=== PATIENT | female | born 1995 ===

== ENCOUNTER 2025-05-10 10:00 | Emergency (ER) | payer MEDICAID, SELFPAY ==
--- NOTE | ~2025-05-10 | US_ITS ---
CLINICAL HISTORY: R sided adnexal tenderness, HCG +, R O ectopic Ultrasound OB first trimester Comparison: None available Findings: Single live intrauterine . CRL: 1.3 cm. EGA: 7 weeks and 4 days. ALFREDO: 11/22/25. Previously established gestational age: N/A. Normal yolk sac. FHR: 160 bpm. No subchorionic bleed. Normal uterus and ovaries. Left corpus luteum. No free fluid. Impression: Single live intrauterine estimated at 7 weeks and 4 days gestational age by today's ultrasound criteria. This document has been electronically signed by: Darcie Weber MD on 05/10/2025 15:16:40
[2025-05-10 10:18] VITALS: BP 120/63; PULSE 88; RESP 20; TEMP 37.3; O2SAT 99; BMI 25.0
[2025-05-10 11:03] LABS: MANUAL DIFF FLAG NO
[2025-05-10 11:05] LABS: Hematocrit 41.2 % (37.0-47.0); Hemoglobin 13.5 g/dl (12.0-16.0); Imm Gran Abs Auto 0.01 X10*3/uL (0.00-0.03); Imm Gran Pct Auto 0.2 % (0.0-0.4); Lymphocytes Absolute Auto 1.8 X10*3/uL (1.2-4.9); Mean Corpuscular HGB Conc 32.8 g/dl (31.0-35.0); Mean Corpuscular Hemoglobin 25.3 pg (27.0-33.0); Mean Corpuscular Volume 77.3 fL (80.0-98.0); NRBC Abs Auto 0.000 X10*3/uL (0.0-0.012); NRBC Pct Auto 0.0 /100WBC (0.0-0.2); Platelet Count 311 X10*3/uL (160-400); Red Blood Count 5.33 X10*6/uL (4.20-5.50); White Blood Count 5.3 X10*3/uL (4.8-10.8)
[2025-05-10 11:07] LABS: Appearance Urine Clear; Glucose Urine UA Negative (Negative); PH 5.5 (5.0-9.0); Specific Gravity - Urine 1.025 (1.005-1.025); UMIC TRIGGER UACC YES
[2025-05-10 11:22] LABS: UACC Culture Trigger YES
--- OUTSIDE RECORDS SUMMARY | 2025-05-10 11:38 | XMS_ITS | Clinical Summary ---
Demographics Address [address] [facility] [address] [place] [address] Home Phone Preferred Language Unknown Marital Status Unknown Episcopal Affiliation Unknown Race Unknown Ethnic Group Unknown Author Organization [employer] Address [address] [facility] [address] [place] [address] Care Team Providers Care Creche Attendant Name Role Phone Unavailable Primary Care Provider Unavailabl e Social History Tobacco Use Types Packs/Day Years Used Date Smoking Tobacco: Never Assessed Comments Unknown Sex and Gender Information Value Date Recorded Sex Assigned at Not on file Legal Sex Female 9:22 PM EDT Gender Identity Not on file Sexual Orientation Not on file Plan of Treatment Health Maintenance Due Date Last Done Comments Depression Screening 1996 HIV Screening 1996 SDOH Screening 1996 Disability Screening 1996 Alcohol/Substance Use Screening 2008 Tobacco Screening 2008 Family Planning (PISQ) 2011 HPV Vaccines (1 - 3-dose series) 2011 Hepatitis C Screening 2014 DTaP/Tdap/Td Vaccines (1 - Tdap) 2015 Hepatitis B Vaccines (1 of 3 - 19+ 3-dose series) 2015 Pap Smear 2017 COVID-19 Vaccine (1 - 2024-2 6 season) 2025 Influenza Vaccine (#1) 2025 Zoster Vaccines (1 of 2) 2046 RSV Patients and Pa tients Aged 60 years or older (1 - 1-dose 75+ series) 2071 HIB Vaccines Aged Out No longer eligi ble based on patient's age to complete this topic Hepatitis A Vaccines Aged Out No long er eligible based on patient's age to complete this topic IPV Vaccines Aged Out No longer eligi ble based on patient's age to complete this topic Meningococcal B Vaccine Aged Out No l onger eligible based on patient's age to complete this topic Meningococcal Vaccine Aged Out No remigio kae eligible based on patient's age to complete this topic Pneumococcal Vaccine: Pediat rics (0 to 5 Years) and At-Risk Patients (6 to 49) Years Aged Out No longer eligible b ased on patient's age to complete this topic RSV under 20 months Aged Out No longe r eligible based on patient's age to complete this topic Rotavirus Vaccines Aged Out No longer eligible based on patient's age to complete this topic
[2025-05-10 11:56] LABS: Alanine Aminotransferase 25 U/L (0-31); Albumin Level 5.0 g/dL (3.5-5.0); Alkaline Phosphatase 54 U/L (39-117); Anion Gap 14 (12-20); Aspartate Amino Transferase 28 U/L (5-31); Blood Urea Nitrogen 10 mg/dL (9-16); Calcium 10.2 mg/dL (8.4-10.2); Carbon Dioxide 21 mmol/L (22-29); Chloride 105 mmol/L (96-108); Creatinine Clr Calc Pharmacy 102.7; Estimated Glomerular Filt Rate > 60; Lipase 18 U/L (8-78); Potassium 3.2 mmol/L (3.3-5.1); Sodium 137 mmol/L (135-145); Total Protein 8.5 g/dL (6.5-8.0)
[2025-05-10 12:18] LABS: Resp Syncy Virus RNA Qual PCR NEGATIVE (Negative); SARS COV2 PCR INHOUSE NEGATIVE (Negative)
--- NOTE | 2025-05-10 12:22 | ED_ITS ---
HPI - General Adult General Chief complaint: Nausea/Vomiting/Diarrhea Stated complaint: stomach pains vomiting Time Seen by Provider: 05/10/25 11:37 Source: patient and suction worker (Lese used for Greg creole interpretation ) Mode of arrival: ambulatory Limitations: no limitations History of Present Illness ED Provider: MANDEEP Schaeffer HPI narrative: 30-year-old female without significant medical history presents to ED due to 3 days of nausea and vomiting that is worse after eating. Patient states she has been experiencing fatigue and general malaise. Patient states she has not had her menstrual cyclie in approximately 8 weeks with LMP 02/15/25. Patient reports she has been having normal bowel movements and passing flatus. Patient denies concern of STI, denies pelvic pain or vaginal discharge. Patient denies sick contacts, recent travel or recent illness. Denies chest pain, shortness of breath, difficulty breathing, abdominal pain, diarrhea, dark/tarry stools, urinary symptoms MD complaint: 3 days nausea with vomiting, general malaise and fatigue Related Data Previous Rx's ?Medication ?Instructions ?Recorded vitamins no.102-iron 90 1 cap PO DAILY #180 c aps 05/10/25 mg-folate 1 mg-dha 200 mg capsule Allergies Allergy/AdvReac Type Severity Reaction Status Date / Time No Known Allergies Allergy Verified 05/10/25 10:24 Review of Systems 2 Review of Systems: Yes all other systems are reviewed and are negative PMFSH Past Medical History Attestation statement: The following information was validated with the patient. Source: old records reviewed and nursing notes reviewed Social History Social History Smoked in Last 30 Days: No Use of substances other than those prescribed or required for medical reasons: No Advance Directives: No Advance Directives Information Provided: Yes Do you have a plan to hurt others: No Plan Patient : Yes Physical Exam ED Vital Signs: Vital Signs - 24 hr 05/10/25 10:18 05/10/25 15:05 Temperature 99.1 F 98.5 F Pulse Rate 88 70 Respiratory Rate 20 16 Blood Pressure 120/63 110/68 Pulse Oximetry 99 100 Oxygen Delivery Method Room Air Room Air BMI result Body Mass Index 25.0 GENERAL APPEARANCE: ?AxOx4, generally well-appearing, no acute distress. HEENT: ?NC, AT. MMM. EOMI, clear conjunctiva, oropharynx clear. NECK: ?Supple without lymphadenopathy.? No stiffness or restricted ROM. HEART:? Normal rate and regular rhythm, normal S1/S2, no m/r/g LUNGS:? CTAB, moving air well. No crackles or wheezes are heard. ABDOMEN: ?Soft, nondistended, no rigidity, patient has mild tenderness over the right adnexal area, no overlying skin changes BACK: No CVAT, no obvious deformity. EXTREMITIES: ?Without cyanosis, clubbing or edema. NEUROLOGICAL: ?Grossly nonfocal. Alert and oriented, moving all 4 extremities. Observed to ambulate with normal gait. Skin: ?Warm and dry without any rash. Medications Administered Discontinued Medications Generic Name Dose Route Start Last Admin Trade Name Freq PRN Reason Stop Dose Admin Ondansetron HCl 4 mg 05/10/25 12:48 05/10/25 13:00 Ondansetron Odt 4 Mg Tab.Rapdis TRANSLINGU 05/10/25 12:49 4 mg ONCE ONE Administration Potassium Chloride 10 meq 05/10/25 12:48 05/10/25 13:00 Potassium Chloride Er 10 Meq Tablet.Er PO 05/10/25 12:49 10 meq ONCE ONE Administration Potassium Chloride 20 meq 05/10/25 12:50 05/10/25 13:00 Potassium Chloride Packet 20 Meq Packet PO 05/10/25 12:51 20 meq ONCE ONE Administration Medical Decision Making Medical Decision Making MDM Narrative: 30-year-old female without significant medical history presents to ED due to 3 days of nausea and vomiting that is worse after eating. Patient states she has been experiencing fatigue and general malaise. Patient states she has not had her menstrual cyclie in approximately 8 weeks with LMP 02/15/25. VS on initial observation-BP 120/63, pulse rate of 88,respiratory rate of 20, afebrile with oral temp of 99.1?, O2 sat 99% on room air. On physical exam patient is well-appearing, nontoxic appearing, no acute distress, lungs clear to auscultation bilaterally, cardiac exam reveals normal rate and rhythm without murmurs/rubs/gallops, abdomen is soft, nonrigid, no distention, mild tenderness over the right adnexal area, extremities without edema Course Labs without leukocytosis/leukopenia, no evidence of anemia, potassium is mildly decreased at 3.2, beta hCG positive at 142,680. We will obtain US Ob/transvaginal to rule out ectopic as patient has some tenderness of the right adnexal area. UA reveals 1+ urine blood, 2+ leukocyte esterase, negative urine nitrites, 0-2 RBCs, 6-10 WBCs, 3-5 squamous epithelial cells, with trace urine bacteria. Patient being medicated with 4mg sublingual zofran, 10meq po potassium, and 20meq potassium oral packet for repletion of potassium. 30-year-old female without significant medical history with 3 days of nausea and vomiting that is worse after eating. Today while in the department patient's labs revealed a mild hypokalemia of 3.2, and a positive beta hCG at 142,680. UA with 1+ urine blood, 2+ leukocyte esterase, negative nitrites, 6-10 urine WBCs, 3-5 squamous epithelial cells, and trace urine bacteria. Patient without urinary symptoms at this time, I discussed with her treatment versus waiting for culture and starting antibiotics when indicated. Patient we will wait for culture. US OB/transvaginal reveals 1 viable IUP. Patient does not have PCP or OBGYN. Patient is being discharged with folic acid and vitamins. I have provided referral for PCP and [facility] Differential Diagnosis Differential Diagnoses: The differential diagnosis associated with the presentation includes Ectopic Electrolyte abnormality Viral illness COVID Flu RSV UTI Admission/Observation Consideration of admission/observation: Escalation of care including admission/observation considered Lab Data MDM Lab Attestation statement: I reviewed the patient's lab results. 05/10/25 10:40 05/10/25 10:40 Labs: Lab Results 05/10/25 05/10/25 Range/Units 10:40 11:32 WBC 5.3 (4.8-10.8) X10*3/uL RBC 5.33 (4.20-5.50) X10*6/uL Hgb 13.5 (12.0-16.0) g/dl Hct 41.2 (37.0-47.0) % MCV 77.3 L (80.0-98.0) fL MCH 25.3 L (27.0-33.0) pg MCHC 32.8 (31.0-35.0) g/dl RDW 14.2 (11.0-16.0) % Plt Count 311 (160-400) X10*3/uL MPV 10.0 (9.4-12.3) fL Immature Gran % (Auto) 0.2 (0.0-0.4) % Neut % (Auto) 55.5 (45-73) % Lymph % (Auto) 33.1 (20-40) % Beckham % (Auto) 8.9 (2-11) % Eos % (Auto) 1.9 (0-4) % Baso % (Auto) 0.4 (0-2) % Lymph # (Auto) 1.8 (1.2-4.9) X10*3/uL [place]ham # (Auto) 0.5 (0.1-1.2) X10*3/uL Eos # (Auto) 0.1 (0.0-0.4) X10*3/uL Baso # (Auto) 0.0 (0.0-0.2) X10*3/uL Abs Immat Gran (auto) 0.01 (0.00-0.03) X10*3/uL Absolute Neuts (auto) 2.9 (2.0-8.3) x10*3/uL Absolute Nucleated RBC 0.000 (0.0-0.012) X10*3/uL Nucleated RBC % (auto) 0.0 (0.0-0.2) /100WBC Sodium 137 (135-145) mmol/L Potassium 3.2 L (3.3-5.1) mmol/L Chloride 105 (96-108) mmol/L Carbon Dioxide 21 L (22-29) mmol/L Anion Gap 14 (12-20) BUN 10 (9-16) mg/dL Creatinine 0.70 (0.5-1.4) mg/dL Estim Creat Clear Calc 102.7 Estimated GFR > 60 Random Glucose 78 (60-115) mg/dL Calcium 10.2 (8.4-10.2) mg/dL Total Bilirubin 0.8 (0.0-1.0) mg/dL Direct Bilirubin 0.3 (0.0-0.5) mg/dL AST 28 (5-31) U/L ALT 25 (0-31) U/L Alkaline Phosphatase 54 (39-117) U/L Total Protein 8.5 H (6.5-8.0) g/dL Albumin 5.0 (3.5-5.0) g/dL Lipase 18 (8-78) U/L Beta HCG, Quant 495574 mIU/mL Urine Color Yellow Urine Appearance Clear Urine pH 5.5 (5.0-9.0) Ur Specific [place] 1.025 (1.005-1.025) Urine Protein Negative (Neg-Trace) mg/dL Urine Glucose (UA) Negative (Negative) mg/dL Urine Ketones 15 (Negative) mg/dL Urine Blood Small (1+) H (Negative) Urine Nitrite Negative (Negative) Ur Leukocyte Esterase Moderate (2+) H (Negative) Urine RBC 0-2 (0-2) /HPF Urine WBC 6-10 (0-5) /HPF Ur Squamous Epith Cells 3-5 (0-2) /HPF Urine Bacteria Trace (None Seen) Hyaline Casts 0-2 (0-2) /LPF Influenza Type A (PCR) NEGATIVE (Negative) Influenza Type B (PCR) NEGATIVE (Negative) RSV RNA Qual (PCR) NEGATIVE (Negative) SARS-CoV-2 RNA (RT-PCR) NEGATIVE (Negative) Independent Interpretation I performed an independent interpretation of an: Ultrasound Interpretation: I personally interpreted the [place] Ob/transvaginal which reveals 1 Singular, viable IUP, I agree with the radiologist's interpretation Radiology Impression Discussion of test interpretation with radiology: I have reviewed the radiologist's reading. Radiologist Impression: U/S Ob/transvaginal Findings: Single live intrauterine . CRL: 1.3 cm. EGA: 7 weeks and 4 days. ALFREDO: 11/22/25. Previously established gestational age: N/A. Normal yolk sac. FHR: 160 bpm. No subchorionic bleed. Normal uterus and ovaries. Left corpus luteum. No free fluid. Impression: Single live intrauterine estimated at 7 weeks and 4 days gestational age by today's ultrasound criteria. This document has been electronically signed by: Darcie Weber MD on 05/10/2025 15:16:40 Dictated By: Darcie Martinez MD Signed By: <Electronically signed by Darcie Martinez MD in OV> 05/10/25 151 External Record Review External record reviewed: Inpatient record, Office record, Outpatient record and Prior outpatient labs Chronic Conditions Patient?s care impacted by: Other () Social Determinants Patient?s care significantly limited by Social Determinants of Health including: Other Social Determinant of Health Discharge Plan Discharge Clinical Impression: Patient Disposition: Home, Self-Care Instructions: at 7 to 10 Weeks (ED) Additional Instructions: You were seen today for nausea and vomiting and were found to have a positive test. An ultrasound shows one viable intrauterine , which is reassuring. Your symptoms are common in early and are often related to hormonal changes. Your urine does show some bacteria but this may be due to contamination, you are not having any symptoms now and will send urine to culture for specific bacteria. If your urine grows bacteria, we will call you and start you on antibiotics. Your blood work revealed a low potassium of 3.2, you were repleted while in the department. Please discuss this with your PCP/OBGYN Medications: Take vitamins and folic acid as prescribed every day to support development and reduce the risk of defects. If the vitamin worsens nausea, you may take it at night or with a small snack. Nausea management: Eat small, frequent meals throughout the day rather than large meals. Choose bland foods (crackers, toast, rice, bananas), avoid greasy or spicy foods, and sip fluids frequently (water, electrolyte drinks, stanley tea). Avoid going long periods without eating. Getting up slowly and avoiding strong smells may also help. Follow-up: Please establish or follow up with an AUXILIARY POWERPLANT OPERATOR or your primary care provider as soon as possible for routine care, please follow up with [facility], or [facility]. I have provided referrals for primary care provider, please call their offices as they will not call you Return to the emergency department immediately if you develop persistent vomiting and cannot keep fluids down, signs of dehydration (very dark urine, urinating very little, dizziness or fainting), severe or worsening abdominal pain, vaginal bleeding, fever, chest pain, shortness of breath, or any other new or concerning symptoms. Prescriptions: New PNV 177-[id number]-[id number] 90 mg iron- 1 mg-200 mg capsule 1 cap PO DAILY Qty: 180 0RF Ref[place]: [facility] [place]Provider Group, Family Practice[place] [facility] [place], Elisa [Provider Group, Internal Medicine] Selene Gramajo NP [Nurse Practitioner, Family Practice] Brittney Strauss PA [Physician Security Rover, Primary Care] Print Language: Greg Garcia
[2025-05-10] MEDS: Potassium Chloride ER 10 MEQ TABLET.ER PO (13:00)
[2025-05-10] MEDS: Potassium Chloride Packet 20 MEQ PACKET PO (13:00)
[2025-05-10 15:05] VITALS: BP 110/68; PULSE 70; RESP 16; TEMP 36.9; O2SAT 100
[2025-05-10 15:54] VITALS: BP 110/68; PULSE 70; RESP 16; TEMP 36.9; O2SAT 100
== END 2025-05-10 15:54 | disposition home or self-care (01) ==
PROVIDERS: Emergency Provider Emergency Medicine
DX: O26.891 Other specified pregnancy related conditions, first trimester (principal); Z3A.01 Less than 8 weeks gestation of pregnancy; R11.2 Nausea with vomiting, unspecified; R10.9 Unspecified abdominal pain; Z03.818 Encounter for observation for suspected exposure to other biological agents ruled out
CPT/HCPCS: 36415; 76801; 80048; 80076; 81001; 83690; 84702; 85025; 87086; 87637; 99284

== ENCOUNTER → 2025-05-10 12:34 | Outpatient (BNV) | payer MEDICAID, SELFPAY | PROVIDERS: Emergency Provider Emergency Medicine; Visit Provider Radiology Diagnostic Radiology | DX: O26.891 Other specified pregnancy related conditions, first trimester (principal); R10.819 Abdominal tenderness, unspecified site; Z3A.01 Less than 8 weeks gestation of pregnancy | CPT/HCPCS: 76801 ==